=== PATIENT | male | born 1995 | race Caucasian/White ===

== ENCOUNTER 2018-07-20 11:19 | Emergency (ER) | payer OTHER ==
[2018-07-20 11:33] VITALS: BP 123/45
--- NOTE | 2018-07-20 12:57 | UC ---
Lower Extremity/Ankle HPI - HPI Summary HPI Summary: Physically active with [employer] 6 days per week and weight lifting; for the past week has had pain in the left buttock with radiation to the back of the left thigh. No associated paresthesias. Hx of scoliosis, managemed conservatively as a teen. No leg weakness, normal voids. Used ibuprofen 600mg once daily only, stopped due to lack of benefit. No previous similar injury. - History of Current Complaint Chief Complaint: UCLowerExtremity Stated Complaint: LEG PAIN Time Seen by Provider: 07/20/18 12:47 Hx Obtained From: Patient Onset/Duration: Gradual Onset, Lasting Days - 7-8 Severity Initially: Moderate Severity Currently: Moderate Pain Intensity: 8 Aggravating Factor(s): Standing, Ambulation Alleviating Factor(s): Rest Able to Bear Weight: Yes - Risk Factors Gout Risk Factors: Negative DVT Risk Factors: Negative - Allergies/Home Medications Allergies/Adverse Reactions: Allergies Allergy/AdvReac Type Severity Reaction Status Date / Time No Known Allergies Allergy Verified 07/20/18 11:33 Home Medications: Home Medications Calcium Carbonate [Calcium] 500 mg PO 07/20/18 [History] Multivitamin [Multivitamins] 1 cap PO 07/20/18 [History] Vitamin B Complex TAB* [B Complex-50*] 1 tab PO DAILY 07/20/18 [History Confirmed 07/20/18] PMH/Surg Hx/FS Hx/Imm Hx Previously Healthy: Yes - Surgical History Surgical History: Yes Surgery Procedure, Year, and Place: wisdom teeth extraction - Family History Known Family History: Positive: Other - father has hx of sciatica., Non- Contributory - Social History Occupation: Student Lives: Dormitory/Roommates Alcohol Use: Occasionally Substance Use Type: None Smoking Status (MU): Never Smoked Tobacco Review of Systems All Other Systems Reviewed And Are Negative: Yes Constitutional: Positive: Negative Skin: Positive: Negative Eyes: Positive: Negative ENT: Positive: Negative Respiratory: Positive: Negative Cardiovascular: Positive: Negative Gastrointestinal: Positive: Negative Genitourinary: Positive: Negative Motor: Positive: Negative Neurovascular: Positive: Negative Musculoskeletal: Positive: Decreased ROM, Myalgia Neurological: Positive: Negative Psychological: Positive: Negative Is Patient Immunocompromised?: No Physical Exam Triage Information Reviewed: Yes Appearance: Well-Appearing, Pain Distress - mild to moderate. Vital Signs: Initial Vital Signs Temp 98.2 F 07/20/18 11:24 Pulse 60 07/20/18 11:24 Resp 18 07/20/18 11:24 BP 123/45 07/20/18 11:24 Pulse Ox 100 07/20/18 11:24 ENT Exam: Normal ENT: Positive: Normal ENT inspection Neck: Positive: Supple, Nontender, No Lymphadenopathy Respiratory: Positive: Lungs clear, Normal breath sounds Cardiovascular: Positive: RRR, No Murmur Musculoskeletal Exam: Other - normal lumbar spine with no TTP. ++muscle bulk. Musculoskeletal: Positive: Strength Intact, ROM Limited @ - left SLR to 60 degrees, with increased pain in gluteal area. Pain with ER of the left hip. Normal gait. Neurological Exam: Other - DTR's at knees 2+. Psychological Exam: Normal Skin Exam: Normal Lower Extremity Course/Dx - Course Course Of Treatment: ibuprofen regularly x 5 to 7 days; referred to PT - Differential Dx/Diagnosis Differential Diagnosis/HQI/PQRI: Sciatica, Sprain, Strain, Tendonitis Provider Diagnoses: left hamstring strain. Discharge - Sign-Out/Discharge Documenting (check all that apply): Patient Departure All imaging exams completed and their final reports reviewed: No Studies - Discharge Plan Condition: Stable Disposition: HOME Patient Education Materials: Hamstring Injury (ED) Referrals: No Primary Care Phys,NOPCP [Primary Care Provider] - Additional Instructions: Use ibuprofen 600 to 800mg three times daily with food for relief of inflammation. Continue stretching, and heat to the gluteal area might help. You have a referral to PT to help with recover. - Billing Disposition and Condition Condition: STABLE Disposition: Home
== END 2018-07-20 13:27 | disposition home or self-care (01) ==
LOC: UCEAST 11:19
DX: S76.812A Strain of other specified muscles, fascia and tendons at thigh level, left thigh, initial encounter (principal); X58.XXXA Exposure to other specified factors, initial encounter; Y92.9 Unspecified place or not applicable
CPT/HCPCS: 99211; G0463

== ENCOUNTER 2019-01-23 17:21 | Emergency (ER) | payer OTHER ==
--- NOTE | 2019-01-23 17:29 | UC ---
Hand/Wrist HPI - HPI Summary HPI Summary: 23 yo male presents with RIGHT wrist pain. He tells me that his pain began about 4 days ago around the radial aspect of his right wrist. He thought it was from going to the gym and weight lifting, which he does quite often, therefore he has not done this since that time. Yesterday he mentions he was skipping rocks for awhile on the [place]. This morning he woke up and his right wrist was more painful. Has improved as the day has gone on. Has not taken anything OTC for this. Denies specific injury. - History Of Current Complaint Stated Complaint: R WRIST PAIN Time Seen by Provider: 01/23/19 17:29 Hx Obtained From: Patient Onset/Duration: Gradual Onset Severity Initially: Moderate Severity Currently: Mild Pain Intensity: 5 Pain Scale Used: 0-10 Numeric - Allergies/Home Medications Allergies/Adverse Reactions: Allergies Allergy/AdvReac Type Severity Reaction Status Date / Time No Known Allergies Allergy Verified 01/23/19 17:35 Home Medications: Home Medications D-Methorphan/PE/Acetaminophen [Gnp Day Time Cold/Flu Rel] 1 liq PO Q12HR PRN [History Confirmed 01/23/19] PMH/Surg Hx/FS Hx/Imm Hx - Additional Past Medical History Additional PMH: None - Surgical History Surgical History: Yes Surgery Procedure, Year, and Place: wisdom teeth extraction - Family History Known Family History: Positive: Other - father has hx of sciatica., Non- Contributory - Social History Occupation: Student Lives: With Family Alcohol Use: Occasionally Substance Use Type: None Smoking Status (MU): Never Smoked Tobacco Review of Systems All Other Systems Reviewed And Are Negative: Yes Constitutional: Positive: Negative Skin: Positive: Negative Respiratory: Positive: Negative Cardiovascular: Positive: Negative Neurovascular: Positive: Negative Musculoskeletal: Positive: Other: - Right wrist pain Neurological: Positive: Negative Psychological: Positive: Negative Physical Exam - Summary Physical Exam Summary: GENERAL: NAD. WDWN. No pain distress. SKIN: No rashes, sores, lesions, or open wounds. CHEST: No accessory muscle use. Breathing comfortably and in no distress. CV: Pulses intact radial and ulnar. Cap refill <2seconds MSK: RIGHT WRIST: TTP along radial aspect of right wrist and thumb tendons. POSITIVE finklestein test. FROM. Strength 5/5 including adult education manager strength. No edema or obvious bony deformities. No snuffbox tenderness. NEURO: Alert. Sensations intact hand and all fingers. PSYCH: Age appropriate behavior. Triage Information Reviewed: Yes Vital Signs: Vital Signs: Temp Pulse Resp BP Pulse Ox 97.8 F 62 18 118/72 98 01/23/19 17:35 01/23/19 17:35 01/23/19 17:35 01/23/19 17:35 01/23/19 17:35 Vital Signs Reviewed: Yes Hand/Wrist Course/Dx - Course Course Of Treatment: Suspect de Quervain's tenosynovitis, likely from weight lifting and skipping rocks. Pt was placed in a thumb spica splint for comfort and advised to RICE. Will rx for naproxen and have him f/u with [facility] if symptoms do not improve with time - Differential Dx/Diagnosis Provider Diagnosis: Radial styloid tenosynovitis [de quervain] Discharge - Sign-Out/Discharge Documenting (check all that apply): Patient Departure All imaging exams completed and their final reports reviewed: No Studies - Discharge Plan Condition: Stable Disposition: HOME Prescriptions: Naproxen [Naproxen 500 mg tab] 500 mg PO BID PRN #30 tablet PRN Reason: Pain Referrals: No Primary Care Phys,NOPCP [Primary Care Provider] - [facility] [Provider Group] - If Needed Additional Instructions: If you develop a fever, shortness of breath, chest pain, new or worsening symptoms - please call your PCP or go to the ED immediately. 1) Rest, Ice, and use the thumb brace to decrease pain and for comfort 2) Refrain from weight lifting for at least a week 3) If your symptoms do not improve after a week of appropriate rest and anti- inflammatory medication, please call [facility] at the number below to schedule an appointment for a recheck - Billing Disposition and Condition Condition: STABLE Disposition: Home
[2019-01-23 17:37] VITALS: BP 118/72
== END 2019-01-23 17:50 | disposition home or self-care (01) ==
LOC: UCEAST 17:21
DX: M65.4 Radial styloid tenosynovitis [de Quervain] (principal)
CPT/HCPCS: 99212; G0463

== ENCOUNTER 2019-04-19 14:36 | Emergency (ER) | payer OTHER ==
[2019-04-19 14:50] VITALS: BP 125/71
--- NOTE | 2019-04-19 15:20 | UC ---
Upper Extremity HPI - HPI Summary HPI Summary: was diagnosed with Dequervan's tenosynivitis R wrist in January, wore wrist brace and took NSAID and felt better after cuple weeks. was doing well until he shook someone's hand today and felt a "pop" in same area or wrist. now painful again. no loss motion or strength. no known injury or fall - History of Current Complaint Chief Complaint: UCUpperExtremity Stated Complaint: R WRIST PAIN Time Seen by Provider: 04/19/19 15:09 Hx Obtained From: Patient Onset/Duration: Sudden Onset Severity Initially: Mild Severity Currently: Mild Pain Intensity: 1 Location Of Pain: Is Discrete @ - R radial wrist Character: Throbbing, Stiffness Aggravating Factor(s): Movement Alleviating Factor(s): Rest Associated Signs And Symptoms: Positive: Negative Related History: Similar Episode/Dx As - DeQuervan's - Allergies/Home Medications Allergies/Adverse Reactions: Allergies Allergy/AdvReac Type Severity Reaction Status Date / Time No Known Allergies Allergy Verified 04/19/19 14:50 Home Medications: Home Medications NK [No Home Medications Reported] 04/19/19 [History Confirmed 04/19/19] PMH/Surg Hx/FS Hx/Imm Hx Previously Healthy: Yes - Surgical History Surgical History: Yes Surgery Procedure, Year, and Place: wisdom teeth extraction - Family History Known Family History: Positive: Other - father has hx of sciatica., Non- Contributory - Social History Occupation: Student Lives: With Family Alcohol Use: Occasionally Substance Use Type: None Smoking Status (MU): Never Smoked Tobacco Review of Systems All Other Systems Reviewed And Are Negative: Yes Constitutional: Positive: Negative. Negative: Fever Skin: Positive: Negative. Negative: Rash, Bruising Respiratory: Positive: Negative Cardiovascular: Positive: Negative Musculoskeletal: Positive: Other: - R wrist pain Neurological: Negative: Weakness, Numbness Psychological: Positive: Negative Is Patient Immunocompromised?: No Physical Exam Triage Information Reviewed: Yes Appearance: Well-Appearing, No Pain Distress, Well-Nourished Vital Signs: Initial Vital Signs Temp 98.6 F 04/19/19 14:44 Pulse 68 04/19/19 14:44 Resp 14 04/19/19 14:44 BP 125/71 04/19/19 14:44 Pulse Ox 100 04/19/19 14:44 Vital Signs Reviewed: Yes Respiratory Exam: Normal Respiratory: Positive: Lungs clear Cardiovascular Exam: Normal Cardiovascular: Positive: RRR Musculoskeletal Exam: Normal Musculoskeletal: Positive: Strength Intact, ROM Intact, Other: - minor tenderness with palpation R distal radius Neurological Exam: Normal Neurological: Positive: Alert Psychological Exam: Normal Skin Exam: Normal Upper Extremity Course/Dx - Differential Dx/Diagnosis Differential Diagnosis/HQI/PQRI: Bursitis, Contusion, Fracture (Closed), Strain Provider Diagnosis: Tenosynovitis, de Quervain Discharge - Sign-Out/Discharge Documenting (check all that apply): Patient Departure All imaging exams completed and their final reports reviewed: No Studies - Discharge Plan Condition: Good Disposition: HOME Patient Education Materials: Tenosynovitis (ED) Referrals: No Primary Care Phys,NOPCP [Primary Care Provider] - Jose Rob PT [Physical Therapist] - 2 Days (for physical therapy) Additional Instructions: wear your wrist splint ibuprofen 600mg every 6 hours as needed for pain follow-up physical therapy - Billing Disposition and Condition Condition: GOOD Disposition: Home
== END 2019-04-19 15:25 | disposition home or self-care (01) ==
LOC: UCEAST 14:36
DX: M65.4 Radial styloid tenosynovitis [de Quervain] (principal)
CPT/HCPCS: 99211; G0463

== ENCOUNTER 2019-12-25 09:11 | Emergency (ER) | payer OTHER ==
[2019-12-25 09:30] VITALS: BP 157/83
[2019-12-25] MEDS ORDERED: Lidocaine 1% MPF ** 5 ML VIAL INJ ONE (09:47)
--- NOTE | 2019-12-25 10:23 | UC ---
Skin Complaint HPI - HPI Summary HPI Summary: 24-year-old male comes with a chief complaint of tailbone pain and swelling. Patient believes he is a pilonidal cyst. Is been going on for couple of days in the last half a day pain is become much greater in the area more swollen. No fevers or chills. Feels well otherwise. Patient does note that he has been sitting a lot more recently. Also has had an area of the perineum on the left side that was swollen and started draining purulent matter. That area size has decreased. No known history of MRSA however the patient was a wrestler in high school. Pain is worse with any pressure on the area. Pain is less with decreasing pressure. - History of Current Complaint Chief Complaint: UCSkin Time Seen by Provider: 12/25/19 09:37 Stated Complaint: SHARP PAIN TAIL BONE Pain Intensity: 9 - Allergy/Home Medications Allergies/Adverse Reactions: Allergies Allergy/AdvReac Type Severity Reaction Status Date / Time No Known Allergies Allergy Verified 12/25/19 09:21 Home Medications: Home Medications DOXYcycline CAP(*) [DOXYcycline 100MG CAP(*)] 100 mg PO BID #20 cap 12/25/19 [Rx ] Ibuprofen 800 mg PO ONCE PRN 12/25/19 [History Confirmed 12/25/19] PMH/Surg Hx/FS Hx/Imm Hx - Surgical History Surgical History: Yes Surgery Procedure, Year, and Place: wisdom teeth extraction - Family History Known Family History: Positive: Other - father has hx of sciatica., Non- Contributory - Social History Alcohol Use: Occasionally Substance Use Type: None Smoking Status (MU): Never Smoked Tobacco Review of Systems All Other Systems Reviewed And Are Negative: Yes Constitutional: Positive: Negative Skin: Positive: Other - SEE HPI Eyes: Positive: Negative ENT: Positive: Negative Respiratory: Positive: Negative Motor: Positive: Negative Neurovascular: Positive: Negative Musculoskeletal: Positive: Negative Neurological/Mental Status: Positive: Headache Psychological: Positive: Negative Is Patient Immunocompromised?: No Physical Exam Triage Information Reviewed: Yes Appearance: Well-Appearing, Well-Nourished, Pain Distress - MILD WITH EXAM OF PILONIDAL AREA Vital Signs: Initial Vital Signs Temp 98.9 F 12/25/19 09:16 Pulse 83 12/25/19 09:16 Resp 18 12/25/19 09:16 BP 157/83 12/25/19 09:16 Pulse Ox 96 12/25/19 09:16 Vital Signs Reviewed: Yes Eye Exam: Normal Eyes: Positive: Conjunctiva Clear Neck: Positive: Supple Respiratory: Positive: No respiratory distress Musculoskeletal: Positive: Strength Intact, ROM Intact Neurological: Positive: Alert Psychological: Positive: Age Appropriate Behavior Skin: Positive: Other - On the perineum and the skin to the left of midline as a 1 cm long by 0.5 cm area of mild tenderness and it is draining some serous fluid. In the upper gluteal cleft there is a 1.5 cm x 1 cm tender swelling. Procedures - Incision and Drainage Midline Coccyx Site: the pilonidal area there is a 1.5 cm x 1 cm swollen tender area Anesthesia: Local, Lidocaine - 1% Instrument(s): Scalpel - #11 Packing: Gauze - 1/4 inch gauze packing Course/Dx - Course Course Of Treatment: With a Betadine prep I infiltrated the pilonidal swelling with 1% lidocaine. I incised the area with a #11 blade. I did get a bloody pus discharge which I sent for culture. Packed with quarter-inch gauze approximately 2 inches. Starting the patient on doxycycline 100 mg by mouth twice a day for 10 days to treat the pilonidal cyst and the other area of infection and the perineum. Patient follow-up with [facility] or surgery if not completely improved. Get reevaluated sooner if worse or any questions or concerns. - Diagnoses Provider Diagnosis: Pilonidal abscess Discharge ED - Sign-Out/Discharge Documenting (check all that apply): Patient Departure All imaging exams completed and their final reports reviewed: No Studies - Discharge Plan Condition: Stable Disposition: HOME Prescriptions: DOXYcycline CAP(*) [DOXYcycline 100MG CAP(*)] 100 mg PO BID #20 cap Patient Education Materials: Pilonidal Cyst (ED) Referrals: Darwin Garza MD [Medical Doctor] - [facility] [Provider Group] Additional Instructions: FOLLOW UP WITH [facility] OR SURGERY IF NOT COMPLETELY IMPROVED. GET REEVALUATED IF NOT IMPROVED OR WORSE OR ANY QUESTIONS OR CONCERNS. - Billing Disposition and Condition Condition: STABLE Disposition: Home
== END 2019-12-25 10:35 | disposition home or self-care (01) ==
LOC: UCEAST 09:11
DX: L05.01 Pilonidal cyst with abscess (principal)
CPT/HCPCS: 10080; 87070; 87076; 87077; 87186; 87205; 87640; 87641; 99212; G0463